=== PATIENT | male | born 1970 | race Hispanic/Latino ===

== ENCOUNTER 2021-12-24 13:52 | Inpatient (IN) | payer SELFPAY ==
[2021-12-24 16:16] LABS: #Basophils 0.1 thou/uL (0.0-0.2); #Eosinphils 0.1 thou/uL (0.0-0.7); #Lymphocytes 0.7 thou/uL (1.20-3.40); #Monocytes 0.5 thou/uL (0.11-0.59); #Neutrophils 3.6 thou/uL (1.40-6.50); %Basophils 1.2 % (0.0-1.0); %Eosinophils 1.1 % (0.0-10.0); %Lymphocytes 14.5 % (21.0-51.0); %Neutrophils 73.3 % (42.0-75.0); Hemoglobin 13.3 g/dL (14.0-18.0); Mean Corpuscular HGB CONC 33.2 g/dL (32.0-36.0); Mean Corpuscular Hemoglobin 35.4 pg (27.0-31.0); Mean Platelet Volume 6.9 fL (7.4-10.4); Platelet Count 100 thou/uL (130-400); RBC Distribution Width 11.6 % (11.5-14.5); Red Blood Cell (RBC) Count 3.76 mill/uL (4.70-6.10); White Blood Cell (WBC) Count 4.9 thou/uL (4.8-10.8)
[2021-12-24 16:34] LABS: ALT (SGPT) 39 U/L (8-55); AST (SGOT) 58 U/L (5-34); Albumin 4.2 g/dL (3.5-5.0); Alkaline Phosphatase 92 U/L (40-110); Anion Gap 16 mmol/L (10-20); BUN (Urea Nitrogen) 9 mg/dL (8.4-25.7); Calc. Creatinine Clearance 0 mL/min (70-130); Calcium 8.9 mg/dL (7.8-10.44); Carbon Dioxide 23 mmol/L (22-29); Chloride 105 mmol/L (98-107); Globulin 3.2 g/dL (2.4-3.5); Glucose 121 mg/dL (70-105); MDiff Complete? YES; Macrocytosis SLIGHT = 6-15 cells (100X) (0-5/hpf); Platelet Morphology Comment Appears Decreased; Potassium 3.7 mmol/L (3.5-5.1); Protein, Total 7.4 g/dL (6.0-8.3); Sodium 140 mmol/L (136-145)
[2021-12-24] MEDS ORDERED: Lorazepam 2 MG/ML VIAL ONE (17:31)
[2021-12-24 17:55] LABS: Acetaminophen Less than 10.0 mcg/mL (10.0-30.0); Alcohol 73 mg/dL (Less than 10); Salicylate Less than 8.0 mg/dL (15.0-30.0)
[2021-12-24] MEDS ORDERED: Multivitamins, Adult 10 ML, Thiamine HCl 100 MG, Folic Acid 1 MG in Dextrose 5 %-0.45 %... IV SCH (18:00)
[2021-12-24] MEDS ORDERED: chlordiazePOXIDE HCl 25 MG CAP PO SCH (18:00)
[2021-12-24 18:01] LABS: Amphetamine Not Detected (NotDetected); Barbiturates Screen Not Detected (NotDetected); Benzodiazepine Screen Not Detected (NotDetected); Cocaine Metabolite Screen Not Detected (NotDetected); Methadone Not Detected (NotDetected); Methamphetamine Not Detected (NotDetected); Opiate Screen Not Detected (NotDetected); Oxycodone Screen Not Detected (NotDetected); Phencyclidine (PCP) Not Detected (NotDetected); THC/Cannabinoid Screen Not Detected (NotDetected); Tricyclic Screen Not Detected (NotDetected)
[2021-12-24] MEDS ORDERED: Acetaminophen 500 MG TAB PO PRN (20:35)
[2021-12-24] MEDS ORDERED: Lorazepam 2 MG/ML VIAL IM PRN (20:35)
[2021-12-24] MEDS ORDERED: hydrALAZINE 20 MG/ML VIAL SLOW IVP PRN (20:35)
[2021-12-24] MEDS ORDERED: Ondansetron PF 4 MG/2 ML Vial IVP PRN (20:35)
[2021-12-24] MEDS ORDERED: Lorazepam 1 MG TAB PO PRN (20:35)
[2021-12-24] MEDS ORDERED: Ondansetron ODT 4 MG TAB PO PRN ×2 (20:35)
[2021-12-24] MEDS ORDERED: Electrolyte Replacement Protocol 1 EACH FS SCH (20:35)
[2021-12-24] MEDS ORDERED: Labetalol HCl 100 MG/20 ML VIAL SLOW IVP PRN (20:35)
[2021-12-24 21:50] VITALS: BMI 22.9
[2021-12-24] MEDS: Sodium Chloride 0.9% 1,000 ML IV SCH (22:10)
[2021-12-24] MEDS ORDERED: Magnesium 2 GM/50 ML(in water) 2 GM in Premix Bag 1 BAG IVPB SCH (22:30)
[2021-12-24] MEDS: Thiamine HCl 200 MG/2 ML VIAL SLOW IVP SCH (23:03)
[2021-12-24] MEDS: Famotidine 20 MG TAB PO SCH (23:04)
[2021-12-24] MEDS: Lorazepam 1 MG TAB PO SCH (23:04)
[2021-12-25] MEDS: Lorazepam 1 MG TAB PO SCH ×4 (05:14→23:41)
[2021-12-25] MEDS: Sodium Chloride 0.9% 1,000 ML IV SCH ×2 (05:14→17:45)
[2021-12-25 06:34] LABS: #Eosinphils 0.1 thou/uL (0.0-0.7); #Lymphocytes 0.9 thou/uL (1.20-3.40); #Monocytes 0.6 thou/uL (0.11-0.59); #Neutrophils 3.1 thou/uL (1.40-6.50); %Basophils 0.8 % (0.0-1.0); %Eosinophils 2.5 % (0.0-10.0); %Lymphocytes 19.3 % (21.0-51.0); %Monocytes 11.8 % (0.0-10.0); %Neutrophils 65.5 % (42.0-75.0); Hemoglobin 13.7 g/dL (14.0-18.0); Mean Corpuscular HGB CONC 33.7 g/dL (32.0-36.0); Mean Corpuscular Hemoglobin 36.1 pg (27.0-31.0); Mean Platelet Volume 6.9 fL (7.4-10.4); Platelet Count 87 thou/uL (130-400); RBC Distribution Width 11.6 % (11.5-14.5); Red Blood Cell (RBC) Count 3.79 mill/uL (4.70-6.10); White Blood Cell (WBC) Count 4.7 thou/uL (4.8-10.8)
[2021-12-25 06:43] LABS: Hemoglobin A1c 4.6 % (4.0-6.0)
[2021-12-25 06:56] LABS: ALT (SGPT) 32 U/L (8-55); AST (SGOT) 44 U/L (5-34); Albumin 3.7 g/dL (3.5-5.0); Alkaline Phosphatase 87 U/L (40-110); Anion Gap 13 mmol/L (10-20); BUN (Urea Nitrogen) 9 mg/dL (8.4-25.7); Bilirubin, Total 1.3 mg/dL (0.2-1.2); Calc. Creatinine Clearance 121 mL/min (70-130); Calcium 8.7 mg/dL (7.8-10.44); Carbon Dioxide 25 mmol/L (22-29); Chloride 106 mmol/L (98-107); Globulin 2.9 g/dL (2.4-3.5); Glucose 94 mg/dL (70-105); Magnesium 2.5 mg/dL (1.6-2.6); Phosphorus 3.4 mg/dL (2.3-4.7); Potassium 3.9 mmol/L (3.5-5.1); Protein, Total 6.6 g/dL (6.0-8.3); Sodium 140 mmol/L (136-145)
[2021-12-25] MEDS: Famotidine 20 MG TAB PO SCH ×2 (08:33→20:44)
[2021-12-25] MEDS: Multivit, Therapeutic 1 TAB PO SCH (08:33)
[2021-12-25] MEDS: Folic Acid 1 MG TAB PO SCH (08:33)
[2021-12-25 11:05] LABS: Syphilis Antibody Nonreactive (Nonreactive); Syphilis Antibody Index 0.07 S/CO (<1.00 Non-Reactive)
[2021-12-25] MEDS ORDERED: Lorazepam 1 MG TAB PO PRN (20:29)
[2021-12-25] MEDS: Thiamine HCl 200 MG/2 ML VIAL SLOW IVP SCH (20:44)
[2021-12-25] MEDS ORDERED: Gabapentin 300 MG CAP PO SCH (21:00)
[2021-12-26] MEDS: Sodium Chloride 0.9% 1,000 ML IV SCH ×2 (03:30→12:15)
[2021-12-26] MEDS: Lorazepam 1 MG TAB PO SCH ×2 (05:35→11:52)
[2021-12-26] MEDS: Multivit, Therapeutic 1 TAB PO SCH (08:42)
[2021-12-26] MEDS: Famotidine 20 MG TAB PO SCH (08:42)
[2021-12-26] MEDS: Folic Acid 1 MG TAB PO SCH (08:42)
[2021-12-26 16:44] VITALS: BP 151/91; TEMP 97.6
[2021-12-26] MEDS ORDERED: Lorazepam 1 MG TAB PO PRN (20:29)
[2021-12-27] MEDS ORDERED: Lorazepam 0.5 MG TAB PO SCH (06:00)
[2021-12-27] MEDS ORDERED: Lorazepam 0.5 MG TAB PO PRN (20:29)
[2021-12-27] MEDS ORDERED: Thiamine 100 MG TAB PO SCH (21:00)
== END 2021-12-26 17:48 | disposition home or self-care (01) | DRG 74 ==
LOC: ERS 13:52 → T4-B 19:32
PROVIDERS: ADMIT Family Medicine; ATTEND Family Medicine
DX: G62.1 Alcoholic polyneuropathy (principal); F10.239 Alcohol dependence with withdrawal, unspecified; R73.9 Hyperglycemia, unspecified; Z20.822 Contact with and (suspected) exposure to COVID-19
CPT/HCPCS: 36415; 36416; 80053; 80306; 80307; 82607; 82746; 83036; 83735; 84100; 85025; 86780; 93923; 96365; 96366; 96375; J2060; J3411; J3475; J7042; J7050; U0003; U0005